=== PATIENT | female | born 1985 | race American Indian/Alaskan Native ===

== ENCOUNTER 2020-12-27 00:31 | Emergency (ER) | payer SELFPAY ==
[2020-12-27] MEDS ORDERED: FLUCONAZOLE 200 MG TAB PO ONE (01:40)
--- NOTE | 2020-12-27 01:46 | Emergency Department Report ---
ED General Adult HPI - General Chief complaint: Skin/Abscess/Foreign Body Stated complaint: LUMP ON LT SIDE OF STOMACH AREA Time Seen by Provider: 12/27/20 01:40 Source: patient Mode of arrival: Ambulatory Limitations: No Limitations - History of Present Illness Initial comments: Patient is a 35-year-old female who presents for left lower quadrant pain and swelling status post tummy tuck 1 month ago. Patient denies fevers or chills there is no nausea no vomiting she has no history of hernia. States postop wounds are healing well no drainage no fever no erythema, however concern for left lower quadrant swelling. Patient has seen surgeon postop advised likely lymph node. Patient describes swelling as soft nontender she is tolerating p.o. and having normal bowel movements there is no hemoptysis no bloody stools. Pain is described at 3/10 aching and soreness. Pain is exacerbated by palpation and movement. Pain is relieved by nothing tried. Patient states she has to wear a corset daily, postop, which irritates site. Severity scale (0 -10): 5 - Related Data Allergies Allergy/AdvReac Type Severity Reaction Status Date / Time No Known Allergies Allergy Verified 12/27/20 01:48 ED Review of Systems ROS: Stated complaint: LUMP ON LT SIDE OF STOMACH AREA Other details as noted in HPI Constitutional: denies: chills, fever Eyes: denies: eye pain, eye discharge, vision change ENT: denies: ear pain, throat pain Respiratory: denies: cough, shortness of breath, wheezing Cardiovascular: denies: chest pain, palpitations Endocrine: no symptoms reported Gastrointestinal: abdominal pain. denies: nausea, vomiting, diarrhea, constipation, hematemesis, melena, hematochezia Genitourinary: denies: urgency, dysuria, frequency, hematuria, discharge Musculoskeletal: denies: back pain, joint swelling, arthralgia Skin: denies: rash, lesions Neurological: denies: headache, weakness, paresthesias Psychiatric: denies: anxiety, depression Hematological/Lymphatic: denies: easy bleeding, easy bruising ED Past Medical Hx - Past Medical History Previous Medical History?: No - Surgical History Past Surgical History?: Yes Additional Surgical History: tummy tuck ED Physical Exam - General Limitations: No Limitations General appearance: alert, in no apparent distress - Head Head exam: Present: atraumatic, normocephalic - Eye Eye exam: Present: normal appearance, EOMI Pupils: Present: normal accommodation - ENT ENT exam: Present: normal orophraynx, mucous membranes moist - Neck Neck exam: Present: normal inspection, full ROM. Absent: tenderness, meningismus - Respiratory Respiratory exam: Present: normal lung sounds bilaterally. Absent: wheezes, stridor, chest wall tenderness - Cardiovascular Cardiovascular Exam: Present: regular rate, normal rhythm, normal heart sounds. Absent: systolic murmur, diastolic murmur, rubs, gallop - GI/Abdominal GI/Abdominal exam: Present: soft, tenderness (mild tenderness LLQ no thrill, no bruit ), normal bowel sounds, mass. Absent: guarding, rebound, rigid, bruit, pulsatile mass, hernia - Rectal Rectal exam: Present: deferred - Extremities Exam Extremities exam: Present: normal inspection, full ROM, tenderness - Back Exam Back exam: Present: normal inspection, full ROM. Absent: tenderness, CVA tenderness (R), CVA tenderness (L) - Neurological Exam Neurological exam: Present: alert, oriented X3, CN II-XII intact, normal gait - Psychiatric Psychiatric exam: Present: normal affect, normal mood - Skin Skin exam: Present: warm, dry, intact, normal color. Absent: rash ED Course Vital Signs 12/27/20 01:12 Temperature 98.5 F Pulse Rate 102 H Respiratory 16 Rate Blood Pressure 126/88 [Right] O2 Sat by Pulse 100 Oximetry ED Medical Decision Making - Radiology Data Radiology results: report reviewed, image reviewed normal abd xray Critical care attestation.: If time is entered above; I have spent that time in minutes in the direct care of this critically ill patient, excluding procedure time. ED Disposition Clinical Impression: Abdominal pain Qualifiers: Abdominal location: left lower quadrant Qualified Code(s): R10.32 - Left lower quadrant pain Disposition: 01 HOME / SELF CARE / HOMELESS Is pt being admited?: No Does the pt Need Aspirin: No Condition: Stable Instructions: Abdominal Pain, Adult, [id number] Additional Instructions: Take all medications as prescribed. Follow-up with your primary care doctor in 2 to 3 days. Referrals: MITRA SAMAYOA MD [Referring] - 3-5 Days Forms: Work/School Release Form(ED) Time of Disposition: 02:44
[2020-12-27 01:48] VITALS: BP 126/88
--- NOTE | 2020-12-27 02:21 | XRay Report ---
ABDOMEN 1 VIEW(S) INDICATION / CLINICAL INFORMATION: abd pain. COMPARISON: None available. FINDINGS: TUBES / LINES: None. BOWEL GAS PATTERN: No significant abnormality. FREE AIR / EXTRALUMINAL GAS: None seen. ADDITIONAL FINDINGS: No significant additional findings. IMPRESSION: 1. No significant abnormality. Signer Name: Ernesto Valente MD Signed: 12/27/2020 2:17 AM Workstation Name: [id number]
== END 2020-12-27 02:47 | disposition home or self-care (01) ==
LOC: ED 00:31
DX: R10.32 Left lower quadrant pain (principal); Z79.899 Other long term (current) drug therapy
CPT/HCPCS: 74018; 99283